=== PATIENT | male | born 1980 | race African-American/Black ===

== ENCOUNTER 2022-01-08 18:19 | Emergency (ER) | payer SELFPAY ==
[~2022-01-08] VITALS: Ht 177.8 cm; Wt 68.0 kg
[2022-01-08 18:23] VITALS: BP 108/63
== END 2022-01-08 23:15 | disposition left against medical advice (07) ==
LOC: ER 18:19
DX: Z53.21 Procedure and treatment not carried out due to patient leaving prior to being seen by health care provider (principal)